=== PATIENT | male | born 1955 | race Caucasian/White ===

== ENCOUNTER → 2018-05-15 08:24 | Outpatient (REF) | payer SELFPAY | LOC: OM 08:24 | PROVIDERS: PCP Family Medicine; Visit Provider Nurse Practitioner Family | DX: Z02.79 Encounter for issue of other medical certificate (principal) ==

== ENCOUNTER 2020-05-03 08:41 | Outpatient (REF) | payer OTHER, SELFPAY ==
[2020-05-03 21:20] LABS: ALT 60 U/L (16-63); AST 27 U/L (15-37); Albumin 4.2 g/dL (3.4-5.0); Alkaline Phosphatase 74 U/L (46-116); Bilirubin, Total 0.6 mg/dL (0.2-1.0); Cholesterol 291 mg/dL (<200); Total Protein 7.1 g/dL (6.4-8.2); Triglyceride 370 mg/dL (<150)
[2020-05-03 22:41] LABS: Calculated LDL 183 mg/dL (<100); HDL Cholesterol 34 mg/dL (40-60)
[2020-05-03 22:49] LABS: Bilirubin, Direct 0.13 mg/dL (0.00-0.20)
== END 2020-05-03 09:01 ==
LOC: NCHCN 08:41
PROVIDERS: PCP Internal Medicine; Visit Provider Internal Medicine
DX: Z00.00 Encounter for general adult medical examination without abnormal findings (principal); E78.5 Hyperlipidemia, unspecified; R94.5 Abnormal results of liver function studies
CPT/HCPCS: 80061; 80076

== ENCOUNTER 2021-05-06 06:12 | Day surgery (SDC) | payer OTHER, SELFPAY ==
--- NOTE | 2021-05-05 13:03 | ANES.PREOP_ITS ---
General Info Date of Service Date Performed: 05/06/21 Height: 5 ft 10 in Weight: 79.152 kg Body Mass Index (BMI): 25.0 Surgical Procedure: Operation Date: 05/06/21 07:35 Proposed Procedures Side Surgeon ellen Ruiz, Meds Allergies and Home Medications Allergies Allergy/AdvReac Type Severity Reaction Status Date / Time No Known Allergies Allergy Unverified 05/06/21 06:32 Home Medication Medication Instructions Recorded multivitamin 1 ea PO DAILY 02/04/13 niacin 500 mg PO DAILY 03/02/15 Lactobacillus acidophilus 1 ea PO DAILY 06/06/16 [Probiotic] Apple Cider Vinegar 2 tbsp PO DAILY 03/06/17 lisinopril 10 mg tablet 10 mg PO DAILY 12/22/20 bisacodyl 5 mg tablet,delayed 5 mg PO ONCE #4 tab 04/22/21 release polyethylene glycol 3350 17 238 g PO ONCE #238 g 04/22/21 gram/dose oral powder PFSH Medical History Medical History Hyperlipidemia Hypertension Migraine variant Surgical History Surgical History wisdom teeth (09/24/82) was put to sleep for wisdom teeth Dr Fran Alcohol Alcohol Intake: current Alcohol intake frequency: a few times a week Alcohol type: hard liquor Substance Use Substance use type: does not use Vital Signs and Lab Results Manually Entered Vital Signs Most Recent Manually Entered Vital Signs: Adult Blood Pressure: 151/95 Heart R ate: 71 Respirations: 18 Oxygen Saturation (%): 98 Temperature (C): 36.3 C Lab Results Blood Type / Crossmatch: No Data to Display Complete Blood Count: No Data to Display Complete Metabolic Panel: No Data to Display Liver Function Panel: No Data to Display Coagulation Panel: No Data to Display Cardiac Panel: No Data to Display Arterial Blood Gas: No Data to Display Venous Blood Gas: No Data to Display Pancreas Panel: No Data to Display Thyroid Panel: No Data to Display Infectious Disease: No Data to Display Blood Cultures: No Data to Display Toxicology Panel: No Data to Display Anesthesia Assessment and Plan Anesthesia History Personal History: No History of Anesthesia Complications Family History: No Family History of Anesthesia Complications Exercise Tolerance Exercise Tolerance: Metabolic Equivalents>4 Pertinent Negatives Pertinent Negatives: No Symptoms of GERD, No Major Cardiovascular Symptoms or Complaints and No Major Pulmonary Symptoms or Complaints Cardiac & Pulmonary Exam Cardiac Exam: Normal S1/S2 Heart Sounds Pulmonary Exam: Clear Bilateral Breath Sounds Airway Exam Known Difficult Airway: No Mallampati Class: 2 Mouth Opening: Normal (> 3cm) Thyromental Distance: Greater than 3 cm Facial Hair: Full Og Neck Range of Motion: Full ROM Neck Circumference: Normal Teeth Condition: Normal Dentition ASA Classification ASA Score: ASA 2 Emergency Case?: No NPO Status NPO Status: NPO Clears >2 hours, Solids >8 hours Anesthesia Plan Resuscitation Status: Full Code Anesthesia Technique: General Anesthesia Airway Planned: Natural Airway Monitors Used: Standard Monitors
--- NOTE | 2021-05-05 18:05 | PDOC.DSDIS_ITS ---
Discharge Plan Disposition Patient Disposition: HOME Condition: Good Discharge Details Reason For Visit: colon scope Attending Provider: Glendy Ruiz Primary Care Provider: Frandy Valderrama Home Meds and New Rx's Prescriptions: Continued multivitamin 1 EACH tablet 1 ea PO DAILY RF: 0 niacin 500 MG tablet 500 mg PO DAILY RF: 0 Probiotic 1 EACH capsule 1 ea PO DAILY RF: 0 apple cider vinegar 2 tbsp PO DAILY RF: 0 lisinopril 10 mg tablet 10 mg PO DAILY RF: 0 Discontinued polyethylene glycol 3350 17 gram/dose powder 238 g PO ONCE Qty: 238 RF: 0 bisacodyl [Dulcolax (bisacodyl)] 5 mg tablet,delayed release (DR/EC) 5 mg PO ONCE Qty: 4 RF: 0 Discharge Instructions Additional Instructions: DSU Colonoscopy Post- Op Instructions Instructions for Everyone who is given Anesthesia: For your safety, please do the following for the next twenty-four (24) hours: *Do Not operate a motor vehicle (car, truck, motorcycle, etc.) *Do Not drink alcoholic beverages or use any recreational drugs for the first 24 hours or while taking pain medications. The medications in your body may have a reaction that can be dangerous. *Do Not make any important decisions or sign any important papers. Findings: moderate diverticula throughout the entire colon make sure you are moving your bowels on a regular basis and not straining to go to the bathroom. Follow up: repeat scope n 10 yrs time 1. No lifting over 20 pounds or strenuous activity for the first 24 hours after your procedure. After 24 hours there are no restrictions on your activity but you may feel fatigued for a few days. 2. After you arrive home you may have a light meal and return to your normal diet as you can tolerate it without feeling sick to your stomach. 3. You may have a bloated, gaseous feeling in your belly (abdomen) after a colonoscopy. Passing gas and belching will help. Walking or lying down on your left side with your knees flexed may relieve the discomfort. Call the office at [phone] (Office) or [phone] (Hospital) right away if you notice any of the following: a.Vomiting of blood or ?coffee ground stools?. b.Rectal bleeding 1Tbsp, blood clots or continuous bleeding. c.Severe belly (abdominal) pain. d.A hard distended belly (abdomen) and an inability to pass gas. 4. Please don?t expect to have a normal BM (bowel movement) for 2-3 days after your procedure. 5. If there are questions regarding the findings of your procedure, please contact your doctor 6. If you are unable to contact your doctor with a problem, contact the hospital at [phone]. 7. Continue all your regular medications unless directed otherwise. I understand the above instructions and have no questions. Signature of Patient or Adult Escort Name of Responsible Adult Escort Signature of Nurse Date/Time Activity:: see above Diet:: see above Discharge Orders Discharge Orders: Discharge Order (Routine); Ordered 05/05/21 Ordered By: Glendy Ruiz DS: Diagnosis Discharge Diagnosis (1) Diverticula of colon: Status: Acute
--- NOTE | 2021-05-05 18:05 | W.COLOREPORT ---
Date of service: 05/06/21 Time of Service: 08:38 Colonoscopy Report Date of procedure: 05/06/21 Pre-op diagnosis general: screen Post-op diagnosis procedure note: other (diverticula ) Surgeon: Glendy Ruiz Anesthesia Type: General:No Airway Pathology: none sent Complications: None Disposition: same day Prep: Miralax/Dulcolax Retraction Time: 8 Procedure Description: After informed consent was obtained the patient was taken to the procedure room and placed in a left decubitous position. Monitors were applied and a time out was done. The patients name, date of , procedure, allergies to medications and metal in their body was reviewed. The patient was then sedated. Once sedated and comfortable a rectal exam was done. External exam was normal. Internal exam revealed a normal sphincter tone and no palpable masses. The scope was then introduced and retrofelexed. no internal hemorrhoids were identified. The scope was then advanced to the cecum w/out difficulty. The TI and appendiceal orifice were identified. The prep was good. The scope was then slowly retracted over 8 minutes back into the rectum. There are no polyps or AVMs visulaized today. There is moderate diverticular disease throughout the entirety of the colon. There is no active bleeding or infection. The scope was removed and the patient was woken up and taken back to Same day surgery in stable condition. The patient tolerated the procedure well and there were no immediate complications. Follow up: The patient should follow up in 10 years unless they develop changes in bowel habits or other new gastrointestinal complaints.
[2021-05-06 06:15] VITALS: BP 151/95; PULSE 71; RESP 18; TEMP 36.3; O2SAT 98
[2021-05-06] MEDS: Lactated Ringers 1,000 ML 80 ML IV (06:50)
[2021-05-06 07:11] VITALS: BP 151/95; PULSE 71; RESP 18; TEMPC 36.3; O2SAT 98; BMI 25.0
[2021-05-06 08:30] VITALS: BP 116/67; PULSE 62; RESP 16; TEMP 36.1; O2SAT 96
--- NOTE | 2021-05-06 08:49 | W.ANESPOSTOP ---
Postoperative Evaluation Date, Time and Location Date Performed: 05/06/21 Time Performed: 08:49 Patient Location: Day Surgery Unit Vital Signs Most Recent Imported Vital Signs: Most Recent Vital Signs Temp Pulse Resp BP Pulse Ox 36.1 C L 62 16 116/67 96 05/06/21 08:30 05/06/21 08:30 05/06/21 08:30 05/06/21 08:30 05/06/21 08:30 Pain Score Most Recent Pain Score: Most Recent Pain Score Pain Level 0 05/06/21 08:30 Assessment Mental Status: Awake (Alert & Oriented to Patient Baseline) Airway and Respiratory Function: Patent airway with normal (patient baseline) respiratory exam Cardiovascular Function: Hemodynamically Stable Hydration Status: Adequately Hydrated Nausea & Vomiting: No Nausea or Vomiting Pain: Pt. Denies Any Pain Peripheral Nerve Block: Patient did not receive a nerve block
[2021-05-06 08:55] VITALS: BP 121/74; PULSE 60; RESP 16; TEMP 36; O2SAT 96
== END 2021-05-06 09:10 | disposition home or self-care (01) ==
PROVIDERS: PCP Internal Medicine; Visit Provider Surgery
PROC: 0DJD8ZZ Inspection of Lower Intestinal Tract, Via Natural or Artificial Opening Endoscopic (ICD-10-PCS; CPT 45378; principal; 2021-05-06 07:30)
DX: Z12.11 Encounter for screening for malignant neoplasm of colon (principal); K57.30 Diverticulosis of large intestine without perforation or abscess without bleeding
CPT/HCPCS: 45378; J2001

== ENCOUNTER 2021-08-08 13:20 | Outpatient (REF) | payer OTHER, SELFPAY ==
[2021-08-08 17:26] LABS: Anion Gap 10.4 mmol/L (3-11); BUN 14 mg/dL (7-18); CO2 25.6 mmol/L (21.0-32.0); CREATININE 0.9 mg/dL (0.70-1.30); Calcium 9.8 mg/dL (8.5-10.1); Chloride 104 mmol/L (98-107); Glucose 104 mg/dL (74-106); Potassium 4.5 mmol/L (3.5-5.1); Sodium 140 mmol/L (136-145)
== END 2021-08-08 13:21 | disposition home or self-care (01) ==
LOC: NCHCN 13:20
PROVIDERS: PCP Internal Medicine; Visit Provider Internal Medicine
DX: I10 Essential (primary) hypertension (principal)
CPT/HCPCS: 80048

== ENCOUNTER 2022-10-09 14:55 | Outpatient (REF) | payer OTHER, SELFPAY ==
[2022-10-09 15:32] LABS: Anion Gap 9.1 mmol/L (3-11); BUN 16 mg/dL (7-18); CO2 27.9 mmol/L (21.0-32.0); CREATININE 0.9 mg/dL (0.70-1.30); Calcium 9.6 mg/dL (8.5-10.1); Calculated LDL 216 mg/dL (<100); Chloride 103 mmol/L (98-107); Cholesterol 335 mg/dL (<200); Estimated GFR 94.78 (mL/min/1.73m2); Glucose 99 mg/dL (74-106); HDL Cholesterol 44 mg/dL (40-60); Potassium 4.5 mmol/L (3.5-5.1); Sodium 140 mmol/L (136-145); Triglyceride 379 mg/dL (<150)
== END 2022-10-09 14:56 | disposition home or self-care (01) ==
LOC: NCHCN 14:55
PROVIDERS: PCP Internal Medicine; Visit Provider Internal Medicine
DX: I10 Essential (primary) hypertension (principal); E78.5 Hyperlipidemia, unspecified; Z00.00 Encounter for general adult medical examination without abnormal findings
CPT/HCPCS: 80048; 80061

== ENCOUNTER 2024-09-19 01:54 | Outpatient (CLI) | payer MEDICARE, SELFPAY ==
--- OUTSIDE RECORDS SUMMARY | 2024-09-19 02:00 | XMS_ITS | Clinical Summary ---
[place] [address] Care Team Providers Care Blow Off Worker Name Role Phone Jordy Rich MD Primary Care Provider [phone] Allergies No known active allergies Medications No known medications Active Problems Problem Noted Date Diagnosed Date Seborrheic keratosis 06/26/2011 Social History Tobacco Use Types Packs/Day Years Used Date Smoking Tobacco: Never Sex and Gender Information Value Date Recorded Sex Assigned at Not on file Gender Identity Not on file Sexual Orientation Not on file Plan of Treatment Health Maintenance Due Date Last Done Comments CT Colonography 1956 Colonoscopy 1956 Colorectal Cancer Screening 1956 FIT DNA 1956 FIT 1956 Sigmoidoscopy (10 year) with FIT yearly 1956 Sigmoidoscopy 1956 Hepatitis C Screening 1974 Lipid Screening 1974 Tetanus/Diphtheria/Pertussis Vaccines (1 - Tdap) 11/14 Pneumoccocal Vaccine: 65+ (1 of 1 - PCV) 2006 Zoster vaccine (1 of 2) 2006 Advance Directive 2011 Covid-19 Vaccine (1 - 2023- season) 2024 Influenza (Flu) vaccine (1 o f 1 - Influenza standard series) 05/25/2024 Care Teams Blow Off Worker Relationship Specialty Start Date End Date Jordy Rich MD [address] [place] [address] PCP - General 08/16/10
--- OUTSIDE RECORDS SUMMARY | 2024-09-19 02:00 | XMS_ITS | Encounter Summary ---
[place] [address] Care Team Providers Care Company Driver Name Role Phone Jordy Rich MD Primary Care Provider [phone] Reason for Visit * Reason Comments Skin Check upper body Encounter Details Date Type Department Care Team (Late st Contact Info) Description 06/26/2011 4:45 PM EDT Office Visit Dermatology [address] [place] [address] [address] [place], [place] [address] David Phan MD [address] [place] [address] RD, [place] [address] Acrochordon (Primary Dx); Seborrheic keratosis Social History Tobacco Use Types Packs/Day Years Used Date Smoking Tobacco: Never Sex and Gender Information Value Date Recorded Sex Assigned at Not on file Gender Identity Not on file Sexual Orientation Not on file documented as of this encounter Progress Notes * David Phan MD - 06/26/2011 5:38 PM EDT Problem: Bothersome skin lesions. Ac is now 55 and referred back by Dr. Rich for evaluation and treatment of some bothersome tags and irritated seborrheic keratoses. Physical examination reveals a large 2cm dark brown to black seborrheic keratosis 20 x 23mm on his back. He has a number of tags present around the base of his neck and also in either axillary vault. He also has an early seborrheic keratosis on the right upper forehead. Assessment & Plan: Bothersome skin tags/seborrheic keratoses. a. After obtaining patient consent, the sites were anesthetized and removed with light C & D and electrodesiccation. b. Triple antibiotic ointment and Band-Aid placed. c. Wound care instructions and supplies given. d. RTC p.r.n. Cc: Jordy Rich MD documented in this encounter Plan of Treatment Not on file documented as of this encounter Visit Diagnoses Diagnosis Acrochordon- Primary Unspecified hypertrophic and atrophic condition of skin Seborrheic keratosis Other seborrheic keratosis documented in this encounter Care Teams Company Driver Relationship Specialty Start Date End Date Jordy Rich MD [address] [place] [address] PCP - General 08/16/10 documented as of this encounter
[2024-09-19 08:24] LABS: ALT 53 U/L (16-63); AST 29 U/L (15-37); Albumin 3.9 g/dL (3.4-5.0); Alkaline Phosphatase 77 U/L (46-116); Anion Gap 6.6 mmol/L (3-11); BUN 16 mg/dL (7-18); Bilirubin, Total 0.58 mg/dL (0.2-1.0); CO2 29.4 mmol/L (21.0-32.0); CREATININE 1.1 mg/dL (0.70-1.30); Calcium 9.2 mg/dL (8.5-10.1); Chloride 105 mmol/L (98-107); Estimated GFR 73.58 (mL/min/1.73m2); Glucose 105 mg/dL (74-106); Potassium 4.3 mmol/L (3.5-5.1); Sodium 141 mmol/L (136-145); Total Protein 7.4 g/dL (6.4-8.2)
== END 2024-09-19 01:55 | disposition home or self-care (01) ==
LOC: LBO 01:54
PROVIDERS: PCP Internal Medicine; Visit Provider Family Medicine
DX: E78.5 Hyperlipidemia, unspecified (principal)
CPT/HCPCS: 36415; 80053

== ENCOUNTER 2025-09-15 10:01 | Outpatient (REF) | payer MEDICARE, SELFPAY ==
[2025-09-15 15:44] LABS: HCT 46.0 % (40.0-50.0); HGB 15.6 g/dL (13.5-17.5); MCH 31.5 pg (27.0-33.0); MCHC 33.9 % (32.0-36.0); MCV 93 fL (80-95); MPV 10.3 fL (8.0-11.0); Platelet Count 194 10^3/uL (130-400); RBC 4.96 10^6/uL (4.36-5.78); RDW 12.0 % (11.8-14.1); RDW-SD 41.1 fL; WBC 5.23 10^3/uL (4.4-10.8)
[2025-09-15 15:55] LABS: ALT 52 U/L (10-49); AST 30 U/L (<34); Albumin 4.6 g/dL (3.2-5.0); Alkaline Phosphatase 81 U/L (46-116); Anion Gap 8 mmol/L (3-11); BUN 20 mg/dL (9-23); Bilirubin, Total 0.7 mg/dL (0.2-1.2); CO2 27.0 mmol/L (20.0-31.0); Calcium 9.6 mg/dL (8.3-10.6); Chloride 107 mmol/L (98-107); Glucose 97 mg/dL (74-106); Potassium 4.6 mmol/L (3.5-5.1); Sodium 142 mmol/L (136-145); Total Protein 7.1 g/dL (5.7-8.2)
== END 2025-09-15 10:02 | disposition home or self-care (01) ==
LOC: NCHCN 10:01
PROVIDERS: PCP Family Medicine; Visit Provider Family Medicine
DX: E78.5 Hyperlipidemia, unspecified (principal); I10 Essential (primary) hypertension
CPT/HCPCS: 80053; 85027